=== PATIENT | female | born 1970 | race Caucasian/White ===

== ENCOUNTER → 2021-04-13 | Outpatient (CLI) | payer BC ==
--- NOTE | 2021-04-13 10:58 | Diagnostic Imaging Report ---
CLINICAL INDICATION: Patient has chronic sinus problems for one year. EXAM: Axial CT scan of the maxillofacial structures without IV contrast . Coronal and sagittal reformations were performed. Auto Exposure Controls were utilized during the CT exam to meet ALARA standards for radiation dose reduction. COMPARISON: None. FINDINGS: PARANASAL SINUSES: FRONTAL: Unremarkable. ETHMOID: There is ofon-rd-atheterv mucosal thickening involving left ethmoid sinus. MAXILLARY: There is complete consolidation left maxillary sinus with slight medial bowing. There is chronic bony sinusitis changes with sclerosis and bony thickening seen. There is bony irregularity of the floor of the left maxillary sinus which extends toward the root of the maxillary left 1st molar tooth. There is minimal mucosal thickening along the floor of the right maxillary sinus. SPHENOID: Unremarkable. OTHER PARANASAL SINUS FINDINGS: None. NASAL SEPTUM: Relatively midline. No significant bony spurs. VISUALIZED TEMPORAL BONE STRUCTURES: Unremarkable. BONY STRUCTURES: Unremarkable. EXTRACRANIAL SOFT TISSUE/ ORBITS: Multiple tonsilloliths are seen. Otherwise extracranial soft tissue structures and orbits are unremarkable. IMPRESSION: 1: There is complete consolidation involving the left maxillary sinus with associated chronic bony sinusitis changes. There is also bony irregularity near the floor of the left maxillary sinus which extends to and possibly involve the root of the maxillary left 1st molar tooth. 2: There is fzsu-vu-jcnyyuhk mucosal thickening involving left maxillary sinus. Dictated by: Dictated on workstation # [id number]
== END ==
LOC: RAD FS 10:06
PROVIDERS: ATTEND Family Medicine
DX: J32.9 Chronic sinusitis, unspecified (principal); J34.89 Other specified disorders of nose and nasal sinuses
CPT/HCPCS: 70486

== ENCOUNTER 2021-07-28 10:09 | Outpatient (CLI) | payer BC ==
[~2021-07-28] VITALS: Ht 149.9 cm; Wt 81.9 kg
[2021-07-28 10:27] VITALS: BP 137/80
[2021-07-28 10:58] LABS: BASOPHILS # (AUTO) 0.1 10^3/uL (0.0-0.1); BASOPHILS % (AUTO) 1 % (0-10)
[2021-07-28 11:00] LABS: EOSINOPHILS # (AUTO) 0.2 10^3/uL (0.0-0.3); EOSINOPHILS % (AUTO) 3 % (0-10); HEMATOCRIT 44 % (35-52); HEMOGLOBIN 14.1 g/dL (11.5-16.0); LYMPHOCYTES # (AUTO) 1.6 10^3/uL (1.0-4.0); LYMPHOCYTES % (AUTO) 30 % (12-44); MEAN CORPUSCULAR HEMOGLOBIN 29 pg (25-34); MEAN CORPUSCULAR HGB CONC 32 g/dL (32-36); MEAN CORPUSCULAR VOLUME 89 fL (80-99); MEAN PLATELET VOLUME 12.2 fL (9.0-12.2); MONOCYTES # (AUTO) 0.5 10^3/uL (0.0-1.0); MONOCYTES % (AUTO) 9 % (0-12); NEUTROPHILS # (AUTO) 3.1 10^3/uL (1.8-7.8); NEUTROPHILS % (AUTO) 57 % (42-75); PLATELET COUNT 121 10^3/uL (130-400); WHITE BLOOD COUNT 5.5 10^3/uL (4.3-11.0)
[2021-07-28 11:16] LABS: CALCIUM 9.7 MG/DL (8.5-10.1); CREATININE SERUM 0.82 MG/DL (0.60-1.30); POTASSIUM 3.9 MMOL/L (3.6-5.0)
[2021-07-28] MEDS ORDERED: METF-397 PO (13:55)
[2021-07-28] MEDS ORDERED: ATOR10TA66 PO (13:55)
[2021-07-28] MEDS ORDERED: LOSA25TA41 PO (13:55)
[2021-07-28] MEDS ORDERED: GLIP10TA13 PO (13:55)
[2021-07-28] MEDS ORDERED: DULA1.5P2 SQ (13:55)
[2021-07-28] MEDS ORDERED: CYAN-41 PO (13:55)
== END 2021-07-28 13:56 ==
LOC: PREOP 10:09
PROVIDERS: ATTEND Otolaryngology Otolaryngology/Facial Plastic Surgery
DX: Z01.818 Encounter for other preprocedural examination (principal); J32.9 Chronic sinusitis, unspecified; Z20.822 Contact with and (suspected) exposure to COVID-19; Z11.2 Encounter for screening for other bacterial diseases
CPT/HCPCS: 36415; 80048; 85025; 87081; 87635; 93005

== ENCOUNTER 2021-07-30 06:29 | Day surgery (SDC) | payer BC ==
[2021-07-30] VITALS (11 sets, daily range): BP systolic 125–143; BP diastolic 62–82
[~2021-07-30 06:29] MED LIST: ATOR10TA66 PO; CYAN-41 PO; DULA1.5P2 SQ; GLIP10TA13 PO; LOSA25TA41 PO; METF-397 PO
--- NOTE | 2021-07-30 06:55 | Progress Note-Pre Operative ---
Pre-Operative Progress Note H&P Reviewed The H&P was reviewed, patient examined and no changes noted. Date Seen by Provider: Jul 30, 2021 Time Seen by Provider: 06:30 Date H&P Reviewed: Jul 30, 2021 Time H&P Reviewed: 06:30 Pre-Operative Diagnosis: Chronic Left Sinusitis, Bilat Hyper of INf Turbs BARRINGTON SIMMONS MD Jul 30, 2021 06:55
[2021-07-30] MEDS ORDERED: CLINDAMYCIN 900 MG/50 ML IVPB 50 ML IV ONE (07:00)
[2021-07-30] MEDS ORDERED: ONDANSETRON 4 MG/2 ML (SDV) Z0FRAN ONE (07:08)
[2021-07-30] MEDS ORDERED: ROCURONIUM 10 MG/ML 5 ML SYRINGE IV ONE (07:08)
[2021-07-30] MEDS ORDERED: SEVOFLURANE (ULTANE) 15 ML INHAL SOLN ONE ×2 (07:08→09:07)
[2021-07-30] MEDS ORDERED: MIDAZOLAM 2 MG/2 ML (VERSED) VIAL ONE (07:08)
[2021-07-30] MEDS ORDERED: LIDOCAINE PF 2% 5 ML (XYLOCAINE) VIAL ONE (07:08)
[2021-07-30] MEDS ORDERED: fentaNYL INJ 100 MCG/2 ML AMP ONE (07:08)
[2021-07-30] MEDS ORDERED: proPOfol 200 MG/20 ML (DIPRIVAN) VIAL IV ONE (07:08)
[2021-07-30] MEDS ORDERED: LACTATED RINGERS 1,000 ML IV PRN (07:15)
[2021-07-30] MEDS ORDERED: COCAINE HCL 4% 2 ML SYR ONE (07:32)
[2021-07-30] MEDS ORDERED: BSS 15 ML ONE (07:33)
[2021-07-30] MEDS ORDERED: NS IV 500 ML 500 ML ONE ×2 (07:33→07:34)
[2021-07-30] MEDS ORDERED: PHENYLEPHRINE 0.5% NASAL SPR (NEO-SYNEPHRINE) REG ONE (07:33)
[2021-07-30] MEDS ORDERED: LIDOCAINE/EPI 1%-1:100,000 (XYLOCAINE) 20ML ONE (07:33)
[2021-07-30] MEDS ORDERED: LIDOCAINE 1% INJ 20 ML 20 ML VIAL ONE (07:43)
[2021-07-30] MEDS ORDERED: NEOSTIGMINE 3 MG/3 ML VIAL ONE (08:55)
[2021-07-30] MEDS ORDERED: GLYCOPYRROLATE 0.2 MG/ML (ROBINUL) 2 ML VIAL ONE (08:55)
--- NOTE | 2021-07-30 08:55 | Progress Note-Post Operative ---
Post-Operative Progess Note Surgeon (s)/Systems Engineer (s) Surgeon BARRINGTON SIMMONS MD Systems Engineer n/a Pre-Operative Diagnosis HYPERTROPHY INFERIOR TURBINATES Post-Operative Diagnosis same Post-Op Procedure Note Date of Procedure: Jul 30, 2021 Name of Procedure Performed: Left ESS, Bilat Red of Inf Turbinates Description & Findings Description and Findings: n/a Anesthesia Type get Estimated Blood Loss minimal Packing none. Specimen(s) collected/removed left sinus disease, left max sinus cultures BARRINGTON SIMMONS MD Jul 30, 2021 08:55
[2021-07-30] MEDS ORDERED: D5 1/2 NS W/KCL 20 MEQ/L 1,000 ML IV SCH (09:00)
[2021-07-30] MEDS ORDERED: PROMETHAZINE INJ 25 MG/ML (PHENERGAN) AMP IVP PRN (09:00)
[2021-07-30] MEDS ORDERED: HYDROcodone/APAP 5 MG/325 MG (LORTAB) TAB PO PRN (09:00)
--- NOTE | 2021-07-30 09:13 | Anesthesia-General Post-Op ---
General Patient Condition Mental Status/LOC: Same as Preop Cardiovascular: Satisfactory Nausea/Vomiting: Absent Respiratory: Satisfactory Pain: Controlled Complications: Absent Post Op Complications Complications None Follow Up Care/Instructions Patient Instructions None needed. Anesthesia/Patient Condition Patient Condition Patient is doing well, no complaints, stable vital signs, no apparent adverse anesthesia problems. No complications reported per nursing. NAZANIN MCNALLY CRNA Jul 30, 2021 09:13
[2021-07-30] MEDS ORDERED: ONDANSETRON 4 MG/2 ML (SDV) Z0FRAN IVP PRN (09:15)
[2021-07-30] MEDS ORDERED: MEPERIDINE (DEMEROL) INJ 50 MG/ML IVP ONE (09:15)
[2021-07-30] MEDS ORDERED: morphine INJ 10 MG/ML 1ML (SYR OR VIAL) IVP ONE (09:15)
[2021-07-30] MEDS ORDERED: morphine INJ 10 MG/ML 1ML (SYR OR VIAL) ONE (09:31)
[2021-07-30] MEDS ORDERED: ACHD5005 PO (10:28)
[2021-07-30] MEDS ORDERED: CLIN300C3 PO (10:28)
== END 2021-07-30 13:45 | disposition home or self-care (01) ==
LOC: SDC 06:29
PROVIDERS: ATTEND Otolaryngology Otolaryngology/Facial Plastic Surgery
DX: J32.4 Chronic pansinusitis (principal); J34.3 Hypertrophy of nasal turbinates; R09.81 Nasal congestion; I10 Essential (primary) hypertension; E78.5 Hyperlipidemia, unspecified; G47.33 Obstructive sleep apnea (adult) (pediatric); E11.9 Type 2 diabetes mellitus without complications; E66.9 Obesity, unspecified; Z79.84 Long term (current) use of oral hypoglycemic drugs; Z79.899 Other long term (current) drug therapy; Z82.3 Family history of stroke
CPT/HCPCS: 82947; 87070; 87075; 87076; 87081; 87101; 87185; 87205; 88305

== ENCOUNTER → 2023-07-12 | Outpatient (CLI) | payer BC ==
[~2023-07-12] MED LIST changes: +ACHD5005 PO; +CLIN300C3 PO
--- NOTE | 2023-07-12 08:58 | Diagnostic Imaging Report ---
PROCEDURE: CT sinuses without contrast TECHNIQUE: Multiple contiguous axial images were obtained through the sinuses without the use of intravenous contrast. Coronal and sagittal reformations were then performed. Auto Exposure Controls were utilized during the CT exam to meet ALARA standards for radiation dose reduction. INDICATION: J32.8, chronic sinusitis COMPARISON: 04/13/2021 FINDINGS: The frontal sinuses are clear. Frontoethmoidal recesses are clear. The sphenoid sinuses are clear. Interval left-sided antrectomy and uncinectomy is noted with associated left-sided ethmoidectomy. However, there remains near complete opacification of the left maxillary sinus though this is slightly improved from the prior examination. This is associated with stable mucoperiosteal thickening of the left maxillary sinus mohamud. Irregularity of the floor of the left maxillary sinus is again identified and not significantly changed from the prior examination. The right maxillary sinus is clear. The sphenoid sinuses are clear. The mastoid air cells and middle ear cavities are clear. The lamina papyracea are intact. The right ostiomeatal complex is patent. No significant nasal septal deviation. No temporomandibular joint dislocation. No acute facial fracture. The orbits are unremarkable. No intracranial midline shift or obstructive hydrocephalus within [id number]. Muscles of mastication are unremarkable. Multiple tonsilloliths again seen. The periventricular fat is symmetric and well-maintained. IMPRESSION: Interval postsurgical changes involving the left maxillary sinus with associated left ethmoidectomy. Persistent near complete opacification of the left maxillary sinus with stable mucoperiosteal thickening of the left maxillary sinus mohamud consistent with chronic sinusitis. Dictated by: Dictated on workstation # [id number]
== END ==
LOC: RAD FS 07:41
PROVIDERS: ATTEND Family Medicine
DX: J32.8 Other chronic sinusitis (principal)
CPT/HCPCS: 70486